=== PATIENT | male | born 1985 | race Caucasian/White ===

== ENCOUNTER → 2016-07-30 | Outpatient (CLI) | payer BC ==
--- NOTE | 2016-07-30 11:16 | DIAGNOSTIC IMAGING REPORT ---
LEFT FOREARM ULTRASOUND CLINICAL HISTORY: Left forearm mass COMPARISON STUDY: No previous studies for comparison. FINDINGS: There is an 11 x 11 x 3 mm wider than tall nodule within the subcutaneous portion of the forearm corresponding to the palpable abnormality. This is isoechoic with surrounding fat, and likely represents a fat lobule or lipoma. Clinical follow-up is advocated. IMPRESSION: The palpable abnormality within the left forearm, is isoechoic with surrounding fat and therefore likely represents a fat lobule or lipoma. Clinical follow-up is recommended Electronically signed by: Juan Jose Shepard M.D. 07/30/2016 11:15 AM Dictated Date/Time: 07/30/2016 11:13 AM
== END | disposition home or self-care (01) ==
LOC: C.ULTRBC 10:21
PROVIDERS: ATTEND Family Medicine
DX: R22.32 Localized swelling, mass and lump, left upper limb (principal)